=== PATIENT | female | born 1945 | race Caucasian/White ===

== ENCOUNTER 2019-02-08 05:32 | Inpatient (IN) | payer MEDICARE | END 2019-02-10 10:30 | disposition home or self-care (01) | LOC: PAS IN 05:32 → ORTHO 4S 11:20 | PROC: 0SRB0JZ Replacement of Left Hip Joint with Synthetic Substitute, Open Approach (ICD-10-PCS; principal; 2019-02-08 07:28) | DX: M16.12 Unilateral primary osteoarthritis, left hip (principal); D62 Acute posthemorrhagic anemia ==